=== PATIENT | female | born 1930 | race Two or more races ===

== ENCOUNTER → 2017-07-23 | Outpatient (CLI) | payer MEDICARE, MEDICAID | END | disposition home or self-care (01) | LOC: HKI 14:22 | DX: M85.851 Other specified disorders of bone density and structure, right thigh (principal); I10 Essential (primary) hypertension; E11.9 Type 2 diabetes mellitus without complications; M06.9 Rheumatoid arthritis, unspecified | CPT/HCPCS: G0463 ==

== ENCOUNTER → 2017-11-16 | Outpatient (CLI) | payer MEDICARE, MEDICAID | END | disposition home or self-care (01) | LOC: HKI 14:03 | DX: Z01.818 Encounter for other preprocedural examination (principal) | CPT/HCPCS: 73502; G0463 ==

== ENCOUNTER 2017-11-18 06:37 | Inpatient (IN) | payer MEDICARE, OTHER ==
[2017-11-18] MEDS: TRANEXAMIC ACID 1,000 MG in NS 100 ML PRE-OP X1 IVPB (07:00)
[2017-11-18] MEDS: LACTATED RINGER'S 1,000 ML IV* (07:00)
[2017-11-18] MEDS: TRANEXAMIC ACID 1,000 MG in NS 100 ML INTRA-OP X1 IVPB (07:00)
[2017-11-18] MEDS: CEFAZOLIN 2 GM/50 ML (PMX) 50 ML IVPB (07:00)
[2017-11-18] MEDS: DEXAMETHASONE 4 MG/ML 1 ML INJ IV (07:34)
[2017-11-18] MEDS: ACETAMINOPHEN 1000MG/100ML IV 100 ML IVPB (07:34)
[2017-11-18] MEDS: ONDANSETRON 4 MG INJ IV ×5 (07:34→22:30)
[2017-11-18] MEDS: LANSOPRAZOLE 30 MG CAP PO (07:41)
[2017-11-18] MEDS ORDERED: ONDANSETRON 4 MG INJ (08:27)
[2017-11-18] MEDS ORDERED: CEFAZOLIN 1 GM INJ (08:27)
[2017-11-18] MEDS ORDERED: FENTAnyl 50 MCG/ML VIAL (08:27)
[2017-11-18] MEDS ORDERED: PROPOFOL 0 ML (08:27)
[2017-11-18] MEDS ORDERED: METOCLOPRAMIDE 10 MG INJ (08:27)
[2017-11-18] MEDS ORDERED: ETOMIDATE 20 MG INJ (08:29)
[2017-11-18] MEDS ORDERED: BUPIVACAINE 0.75%/DEXT (SPINAL) 2 ML INJ (08:30)
[2017-11-18] MEDS ORDERED: ROCURONIUM 50 MG INJ (08:32)
[2017-11-18] MEDS ORDERED: EPHEDrine SULFATE 50 MG/5 ML SYG ×2 (09:43→11:02)
[2017-11-18] MEDS ORDERED: TRIMETHOBENZAMIDE 100 MG/ML VIAL IM (10:30)
[2017-11-18] MEDS ORDERED: BETHANECHOL 25 MG TAB PO (10:30)
[2017-11-18] MEDS ORDERED: NALOXONE (0.4 MG/ML) INJ IV (10:30)
[2017-11-18] MEDS ORDERED: NACL 0.9% 3 ML SYG IV (10:30)
[2017-11-18] MEDS ORDERED: DIPHENHYDRAMINE 50 MG INJ IV (10:30)
[2017-11-18] MEDS ORDERED: NA PHOSPHATE/BIPHOS 133 ML ENEMA PR (10:30)
[2017-11-18] MEDS ORDERED: BISACODYL 10 MG SUPP PR (10:30)
[2017-11-18] MEDS ORDERED: oxyCODONE 5 MG TAB PO ×2 (10:30)
[2017-11-18] MEDS ORDERED: ALBUMIN HUMAN 5% 250 ML ×2 (11:02→11:59)
[2017-11-18] MEDS: BACITRACIN 50000 UNITS INJ (11:25)
[2017-11-18] MEDS: POLYMYXIN B 500000 UNIT INJ (11:25)
[2017-11-18] MEDS ORDERED: PHENYLephrine (100 MCG/ML) 5ML SYG (11:38)
[2017-11-18] MEDS ORDERED: EPHEDrine SULFATE 50 MG/5 ML SYG IV (12:00)
[2017-11-18] MEDS ORDERED: HYDROmorphONE (0.2 MG/ML) 10ML SYG IV ×2 (12:00)
[2017-11-18] MEDS ORDERED: DEXTROSE 50% 50 ML SYRINGE IV ×3 (12:00→18:00)
[2017-11-18] MEDS ORDERED: ROPIVACAINE 0.5 % 30 ML VIAL (12:03)
[2017-11-18] MEDS: HYDROmorphONE (0.2 MG/ML) 10ML SYG IV ×2 (13:33→13:47)
[2017-11-18] MEDS: INSULIN REGULAR, HUMAN 100 UNIT/1 ML 3ML VIAL IVP (13:41)
[2017-11-18] MEDS: CEFAZOLIN 1 GM/50 ML (PMX) 50 ML IVPB ×2 (13:59→18:23)
[2017-11-18] MEDS: SOD CHLORIDE 0.9% 1,000 ML IV (14:02)
[2017-11-18] MEDS: DOCUSATE SODIUM 100 MG CAP PO (14:06)
[2017-11-18] MEDS: ASPIRIN (EC) 325 MG TAB PO (14:06)
[2017-11-18] MEDS ORDERED: GLUCOSE GEL 15 GRAM TUBE BUCCAL (18:00)
[2017-11-18] MEDS ORDERED: GLUCOSE GEL 15 GRAM TUBE PO ×2 (18:00)
[2017-11-18] MEDS ORDERED: GLUCAGON 1 MG INJ IM (18:00)
[2017-11-18] MEDS: metFORMIN 500 MG TAB PO (18:24)
[2017-11-18] MEDS: INSULIN ASPART [NOVOLOG] 3 ML PEN SC ×2 (18:24→21:20)
[2017-11-18] MEDS: ACCU-CHEK XX (19:55)
[2017-11-18] MEDS ORDERED: VITAMIN A & D 5 GM OINT PACKET TOP (21:12)
[2017-11-18] MEDS: ATORVASTATIN 40 MG TAB PO (21:18)
[2017-11-18] MEDS: GABAPENTIN 100 MG CAP PO (21:18)
[2017-11-19] MEDS: KETOROLAC 15 MG INJ IV ×2 (00:05→11:24)
[2017-11-19] MEDS: CEFAZOLIN 1 GM/50 ML (PMX) 50 ML IVPB (02:21)
[2017-11-19] MEDS: SOD CHLORIDE 0.9% 1,000 ML IV ×2 (02:24→11:14)
[2017-11-19] MEDS: ACCU-CHEK XX ×4 (02:37→20:30)
[2017-11-19 05:38] LABS: ADD MAN DIFF? NO
[2017-11-19 05:57] LABS: ANION GAP 16 (8-16); BLOOD UREA NITROGEN 27 mg/dl (7-20); CALCIUM 8.6 mg/dl (8.4-10.2); CARBON DIOXIDE 24 mmol/L (21-31); CHLORIDE 107 mmol/L (97-110); CREATININE 0.96 mg/dl (0.44-1.00); GLUCOSE 129 mg/dl (70-220); POTASSIUM 5.2 mmol/L (3.5-5.1); SODIUM 142 mmol/L (135-144)
[2017-11-19] MEDS: ONDANSETRON 4 MG INJ IV (05:58)
[2017-11-19] MEDS: PANTOPRAZOLE (EC) 40 MG TAB PO (05:58)
[2017-11-19 06:32] LABS: BASOPHILS % 0.2 % (0.0-2.0); EOSINOPHILS % 0.1 % (0.0-7.0); HEMATOCRIT 22.1 % (37.0-47.0); LYMPHOCYTES # 2.2 10^3/ul (0.8-2.9); LYMPHOCYTES % 24.5 % (15.0-51.0); MEAN CORPUSCULAR HEMOGLOBIN 28.6 pg (29.0-33.0); MEAN CORPUSCULAR HGB CONC 31.7 g/dl (32.0-37.0); MEAN CORPUSCULAR VOLUME 90.2 fl (82.0-101.0); MEAN PLATELET VOLUME 11.5 fl (7.4-10.4); MONOCYTE # 1.3 10^3/ul (0.3-0.9); MONOCYTES % 14.5 % (0.0-11.0); NEUTROPHIL # 5.3 10^3/ul (1.6-7.5); NEUTROPHILS % 60.5 % (39.0-77.0); PLATELET COUNT 159 10^3/UL (140-415); RED BLOOD COUNT 2.45 10^6/ul (4.20-5.40); RED CELL DISTRIBUTION WIDTH 13.7 % (11.5-14.5)
[2017-11-19 06:32] LABS: WHITE BLOOD COUNT 8.8 10^3/ul (4.8-10.8)
[2017-11-19 06:34] LABS: POSITIVE DIFF @See below
[2017-11-19] MEDS ORDERED: CELECOXIB 200 MG CAP PO (09:00)
[2017-11-19] MEDS ORDERED: NON-FORMULARY/PATIENT OWN MED (Omeprazole* 40 MG) PO (09:00)
[2017-11-19] MEDS: ENALAPRIL 10 MG TAB PO (09:00)
[2017-11-19] MEDS: METOPROLOL (XL) 50 MG TAB PO (09:00)
[2017-11-19] MEDS: INSULIN ASPART [NOVOLOG] 3 ML PEN SC ×4 (09:07→21:00)
[2017-11-19] MEDS: oxyCODONE 5 MG TAB PO (09:13)
[2017-11-19] MEDS: FERROUS FUMARATE (SR) TAB PO ×2 (09:14→20:28)
[2017-11-19] MEDS: CELECOXIB 100 MG CAP PO ×2 (09:14→20:29)
[2017-11-19] MEDS: DOCUSATE SODIUM 100 MG CAP PO ×2 (09:15→20:28)
[2017-11-19] MEDS: GABAPENTIN 100 MG CAP PO ×2 (09:15→20:29)
[2017-11-19] MEDS: metFORMIN 500 MG TAB PO ×2 (09:16→17:43)
[2017-11-19] MEDS: ASPIRIN (EC) 325 MG TAB PO (09:16)
[2017-11-19 15:41] LABS: IRON 26 ug/dl (35-150)
[2017-11-19 15:51] LABS: % IRON SATURATION 11 % SAT (22-52); TOTAL IRON BINDING CAPACITY 236 ug/dl (241-421)
[2017-11-19 16:17] LABS: FERRITIN 41.8 ng/ml (11.1-264.0)
[2017-11-19] MEDS: CYANOCOBALAMIN 1000 MCG INJ IM (16:51)
[2017-11-19 17:06] LABS: ADD UMIC NO; UR ASCORBIC ACID NEGATIVE (NEGATIVE); UR BILIRUBIN (Dip) NEGATIVE (NEGATIVE); UR BLOOD (Dip) NEGATIVE (NEGATIVE); UR CLARITY CLEAR (CLEAR); UR COLOR YELLOW (YELLOW); UR GLUCOSE (Dip) NEGATIVE (NEGATIVE); UR KETONES (Dip) NEGATIVE (NEGATIVE); UR LEUKOCYTE ESTERASE (Dip) NEGATIVE Leu/ul (NEGATIVE); UR NITRITE (Dip) NEGATIVE (NEGATIVE); UR SPECIFIC GRAVITY (Dip) 1.014 (1.003-1.030); UR TOTAL PROTEIN (Dip) NEGATIVE (NEGATIVE); UR UROBILINOGEN (Dip) NEGATIVE (NEGATIVE)
[2017-11-19] MEDS: SOD CHLORIDE 0.9% 500 ML IV (17:41)
[2017-11-19] MEDS ORDERED: ACETAMINOPHEN (10 MG/ML) IV SYG IV* (20:00)
[2017-11-19] MEDS: ACETAMINOPHEN 1000MG/100ML IV 50 ML IVPB ×2 (20:04→22:00)
[2017-11-19] MEDS: SOD FERRIC GLUC COMPLX 125 MG in SOD CHLORIDE 0.9% 100 ML IVPB (20:05)
[2017-11-19] MEDS: ATORVASTATIN 40 MG TAB PO (20:29)
[2017-11-19 22:18] LABS: IMMEDIATE SPIN CROSSMATCH 1 2
[2017-11-20] MEDS: ACCU-CHEK XX ×4 (02:00→20:17)
[2017-11-20] MEDS ORDERED: ACCU-CHEK XX (02:00)
[2017-11-20] MEDS: SOD CHLORIDE 0.9% 1,000 ML IV ×2 (02:31→17:47)
[2017-11-20] MEDS: ACETAMINOPHEN 1000MG/100ML IV 50 ML IVPB ×4 (02:31→17:27)
[2017-11-20] MEDS: PANTOPRAZOLE (EC) 40 MG TAB PO (05:52)
[2017-11-20] MEDS: INSULIN ASPART [NOVOLOG] 3 ML PEN SC ×4 (07:50→20:18)
[2017-11-20] MEDS: metFORMIN 500 MG TAB PO ×2 (09:00→17:47)
[2017-11-20] MEDS: ASPIRIN (EC) 325 MG TAB PO (09:29)
[2017-11-20] MEDS: GABAPENTIN 100 MG CAP PO ×2 (09:29→20:18)
[2017-11-20] MEDS: DOCUSATE SODIUM 100 MG CAP PO ×2 (09:29→20:18)
[2017-11-20] MEDS: CELECOXIB 100 MG CAP PO ×2 (09:29→20:19)
[2017-11-20] MEDS: FERROUS FUMARATE (SR) TAB PO ×2 (09:29→20:18)
[2017-11-20] MEDS: METOPROLOL (XL) 50 MG TAB PO (09:30)
[2017-11-20] MEDS: ENALAPRIL 10 MG TAB PO (09:30)
[2017-11-20 11:59] LABS: ADD MAN DIFF? NO
[2017-11-20] MEDS: TIZANIDINE 2 MG TAB PO ×2 (12:14→22:38)
[2017-11-20 12:18] LABS: BASOPHILS % 0.3 % (0.0-2.0); EOSINOPHILS # 0.1 10^3/ul (0.0-0.5); EOSINOPHILS % 1.1 % (0.0-7.0); HEMATOCRIT 29.3 % (37.0-47.0); HEMOGLOBIN 9.7 g/dl (12.0-16.0); LYMPHOCYTES # 1.6 10^3/ul (0.8-2.9); LYMPHOCYTES % 17.2 % (15.0-51.0); MEAN CORPUSCULAR HEMOGLOBIN 29.3 pg (29.0-33.0); MEAN CORPUSCULAR HGB CONC 33.1 g/dl (32.0-37.0); MEAN CORPUSCULAR VOLUME 88.5 fl (82.0-101.0); MEAN PLATELET VOLUME 11.1 fl (7.4-10.4); MONOCYTE # 1.1 10^3/ul (0.3-0.9); MONOCYTES % 11.6 % (0.0-11.0); NEUTROPHIL # 6.5 10^3/ul (1.6-7.5); NEUTROPHILS % 69.5 % (39.0-77.0); PLATELET COUNT 166 10^3/UL (140-415); RED BLOOD COUNT 3.31 10^6/ul (4.20-5.40); RED CELL DISTRIBUTION WIDTH 14.4 % (11.5-14.5)
[2017-11-20 12:18] LABS: WHITE BLOOD COUNT 9.3 10^3/ul (4.8-10.8)
[2017-11-20 12:20] LABS: ANION GAP 12 (8-16); BLOOD UREA NITROGEN 21 mg/dl (7-20); CALCIUM 8.6 mg/dl (8.4-10.2); CARBON DIOXIDE 24 mmol/L (21-31); CHLORIDE 110 mmol/L (97-110); CREATININE 0.77 mg/dl (0.44-1.00); GLUCOSE 136 mg/dl (70-220); POTASSIUM 4.6 mmol/L (3.5-5.1); SODIUM 141 mmol/L (135-144)
[2017-11-20] MEDS: SOD FERRIC GLUC COMPLX 125 MG in SOD CHLORIDE 0.9% 100 ML IVPB (17:38)
[2017-11-20] MEDS: SENNA/DOCUSATE NA (8.6MG/50MG) TAB PO (17:47)
[2017-11-20] MEDS: ATORVASTATIN 40 MG TAB PO (20:18)
[2017-11-20] MEDS: KETOROLAC 15 MG INJ IV (22:38)
[2017-11-20] MEDS: ZOLPIDEM 5 MG TAB PO (23:24)
[2017-11-21] MEDS: SOD CHLORIDE 0.9% 1,000 ML IV ×2 (00:44→06:24)
[2017-11-21] MEDS: ACCU-CHEK XX ×4 (02:00→19:55)
[2017-11-21 05:37] LABS: ADD MAN DIFF? NO
[2017-11-21 05:40] LABS: BASOPHILS % 0.4 % (0.0-2.0); EOSINOPHILS # 0.2 10^3/ul (0.0-0.5); EOSINOPHILS % 2.4 % (0.0-7.0); HEMATOCRIT 28.4 % (37.0-47.0); HEMOGLOBIN 9.4 g/dl (12.0-16.0); LYMPHOCYTES # 2.1 10^3/ul (0.8-2.9); LYMPHOCYTES % 21.7 % (15.0-51.0); MEAN CORPUSCULAR HEMOGLOBIN 29.8 pg (29.0-33.0); MEAN CORPUSCULAR HGB CONC 33.1 g/dl (32.0-37.0); MEAN CORPUSCULAR VOLUME 90.2 fl (82.0-101.0); MEAN PLATELET VOLUME 11.2 fl (7.4-10.4); MONOCYTE # 0.9 10^3/ul (0.3-0.9); MONOCYTES % 9.6 % (0.0-11.0); NEUTROPHIL # 6.2 10^3/ul (1.6-7.5); NEUTROPHILS % 65.5 % (39.0-77.0); PLATELET COUNT 171 10^3/UL (140-415); RED BLOOD COUNT 3.15 10^6/ul (4.20-5.40); RED CELL DISTRIBUTION WIDTH 14.6 % (11.5-14.5)
[2017-11-21 05:40] LABS: WHITE BLOOD COUNT 9.5 10^3/ul (4.8-10.8)
[2017-11-21] MEDS: PANTOPRAZOLE (EC) 40 MG TAB PO (06:24)
[2017-11-21] MEDS: KETOROLAC 15 MG INJ IV (06:24)
[2017-11-21] MEDS: TIZANIDINE 2 MG TAB PO ×2 (06:25→13:22)
[2017-11-21 06:30] LABS: ANION GAP 13 (8-16); BLOOD UREA NITROGEN 21 mg/dl (7-20); CALCIUM 8.5 mg/dl (8.4-10.2); CARBON DIOXIDE 22 mmol/L (21-31); CHLORIDE 111 mmol/L (97-110); CREATININE 0.78 mg/dl (0.44-1.00); GLUCOSE 121 mg/dl (70-220); POTASSIUM 4.4 mmol/L (3.5-5.1); SODIUM 142 mmol/L (135-144)
[2017-11-21] MEDS: CELECOXIB 100 MG CAP PO ×2 (08:45→21:03)
[2017-11-21] MEDS: DOCUSATE SODIUM 100 MG CAP PO ×2 (08:46→21:03)
[2017-11-21] MEDS: FERROUS FUMARATE (SR) TAB PO ×2 (08:46→21:03)
[2017-11-21] MEDS: ASPIRIN (EC) 325 MG TAB PO (08:47)
[2017-11-21] MEDS: METOPROLOL (XL) 50 MG TAB PO (08:47)
[2017-11-21] MEDS: GABAPENTIN 100 MG CAP PO ×2 (08:47→21:03)
[2017-11-21] MEDS: ENALAPRIL 10 MG TAB PO (08:48)
[2017-11-21] MEDS: INSULIN ASPART [NOVOLOG] 3 ML PEN SC ×4 (08:52→21:00)
[2017-11-21] MEDS: metFORMIN 500 MG TAB PO ×2 (08:57→17:45)
[2017-11-21] MEDS: ACETAMINOPHEN 325 MG TAB PO (12:26)
[2017-11-21] MEDS: SOD FERRIC GLUC COMPLX 125 MG in SOD CHLORIDE 0.9% 100 ML IVPB (17:22)
[2017-11-21] MEDS: ATORVASTATIN 40 MG TAB PO (21:03)
[2017-11-22] MEDS: SOD CHLORIDE 0.9% 1,000 ML IV ×2 (01:44→14:14)
[2017-11-22] MEDS: ACCU-CHEK XX ×4 (02:00→19:55)
[2017-11-22 05:28] LABS: ADD MAN DIFF? NO
[2017-11-22 05:32] LABS: BASOPHILS % 0.4 % (0.0-2.0); EOSINOPHILS # 0.3 10^3/ul (0.0-0.5); EOSINOPHILS % 2.6 % (0.0-7.0); HEMATOCRIT 29.9 % (37.0-47.0); HEMOGLOBIN 9.7 g/dl (12.0-16.0); LYMPHOCYTES # 1.7 10^3/ul (0.8-2.9); LYMPHOCYTES % 17.6 % (15.0-51.0); MEAN CORPUSCULAR HEMOGLOBIN 29.2 pg (29.0-33.0); MEAN CORPUSCULAR HGB CONC 32.4 g/dl (32.0-37.0); MEAN CORPUSCULAR VOLUME 90.1 fl (82.0-101.0); MEAN PLATELET VOLUME 10.8 fl (7.4-10.4); MONOCYTE # 1.1 10^3/ul (0.3-0.9); MONOCYTES % 11.2 % (0.0-11.0); NEUTROPHIL # 6.5 10^3/ul (1.6-7.5); NEUTROPHILS % 67.7 % (39.0-77.0); PLATELET COUNT 234 10^3/UL (140-415); RED BLOOD COUNT 3.32 10^6/ul (4.20-5.40); RED CELL DISTRIBUTION WIDTH 14.6 % (11.5-14.5)
[2017-11-22 05:32] LABS: WHITE BLOOD COUNT 9.6 10^3/ul (4.8-10.8)
[2017-11-22] MEDS: PANTOPRAZOLE (EC) 40 MG TAB PO (05:51)
[2017-11-22 06:00] LABS: ANION GAP 16 (8-16); BLOOD UREA NITROGEN 16 mg/dl (7-20); CALCIUM 8.9 mg/dl (8.4-10.2); CARBON DIOXIDE 21 mmol/L (21-31); CHLORIDE 111 mmol/L (97-110); CREATININE 0.74 mg/dl (0.44-1.00); GLUCOSE 87 mg/dl (70-220); POTASSIUM 4.6 mmol/L (3.5-5.1); SODIUM 143 mmol/L (135-144)
[2017-11-22] MEDS: METOPROLOL (XL) 50 MG TAB PO (08:40)
[2017-11-22] MEDS: FERROUS FUMARATE (SR) TAB PO ×2 (08:40→21:15)
[2017-11-22] MEDS: GABAPENTIN 100 MG CAP PO ×2 (08:41→21:15)
[2017-11-22] MEDS: ASPIRIN (EC) 325 MG TAB PO (08:41)
[2017-11-22] MEDS: metFORMIN 500 MG TAB PO ×2 (08:41→18:01)
[2017-11-22] MEDS: CELECOXIB 100 MG CAP PO ×2 (08:41→21:15)
[2017-11-22] MEDS: ENALAPRIL 10 MG TAB PO (08:41)
[2017-11-22] MEDS: INSULIN ASPART [NOVOLOG] 3 ML PEN SC ×4 (08:56→21:00)
[2017-11-22] MEDS: MAGNESIUM HYDROXIDE 30ML CUP PO (12:32)
[2017-11-22 16:27] LABS: ERYTHROCYTE SEDIMENTATION RATE 70 mm/Hr (0-30)
[2017-11-22] MEDS: ATORVASTATIN 40 MG TAB PO (21:15)
[2017-11-22] MEDS: TIZANIDINE 2 MG TAB PO (22:12)
[2017-11-23] MEDS: ACCU-CHEK XX ×3 (02:00→15:40)
[2017-11-23] MEDS: SOD CHLORIDE 0.9% 1,000 ML IV ×2 (02:44→15:14)
[2017-11-23 05:21] LABS: ADD MAN DIFF? NO
[2017-11-23 05:26] LABS: BASOPHIL # 0.1 10^3/ul (0.0-0.1); BASOPHILS % 0.7 % (0.0-2.0); EOSINOPHILS # 0.2 10^3/ul (0.0-0.5); EOSINOPHILS % 2.8 % (0.0-7.0); HEMATOCRIT 29.3 % (37.0-47.0); HEMOGLOBIN 9.7 g/dl (12.0-16.0); LYMPHOCYTES # 1.7 10^3/ul (0.8-2.9); MEAN CORPUSCULAR HEMOGLOBIN 29.8 pg (29.0-33.0); MEAN CORPUSCULAR HGB CONC 33.1 g/dl (32.0-37.0); MEAN CORPUSCULAR VOLUME 89.9 fl (82.0-101.0); MEAN PLATELET VOLUME 10.7 fl (7.4-10.4); MONOCYTES % 12.6 % (0.0-11.0); PLATELET COUNT 247 10^3/UL (140-415); RED BLOOD COUNT 3.26 10^6/ul (4.20-5.40); RED CELL DISTRIBUTION WIDTH 14.6 % (11.5-14.5)
[2017-11-23 05:26] LABS: WHITE BLOOD COUNT 8.1 10^3/ul (4.8-10.8)
[2017-11-23 05:43] LABS: ANION GAP 17 (8-16); BLOOD UREA NITROGEN 12 mg/dl (7-20); CALCIUM 9.1 mg/dl (8.4-10.2); CARBON DIOXIDE 22 mmol/L (21-31); CHLORIDE 109 mmol/L (97-110); CREATININE 0.69 mg/dl (0.44-1.00); GLUCOSE 94 mg/dl (70-220); POTASSIUM 4.4 mmol/L (3.5-5.1); SODIUM 144 mmol/L (135-144)
[2017-11-23] MEDS: PANTOPRAZOLE (EC) 40 MG TAB PO (05:48)
[2017-11-23] MEDS: INSULIN ASPART [NOVOLOG] 3 ML PEN SC ×3 (07:50→17:55)
[2017-11-23] MEDS: CELECOXIB 100 MG CAP PO (08:36)
[2017-11-23] MEDS: FERROUS FUMARATE (SR) TAB PO (08:36)
[2017-11-23] MEDS: GABAPENTIN 100 MG CAP PO (08:37)
[2017-11-23] MEDS: ASPIRIN (EC) 325 MG TAB PO (08:37)
[2017-11-23] MEDS: METOPROLOL (XL) 50 MG TAB PO (08:37)
[2017-11-23] MEDS: ENALAPRIL 10 MG TAB PO (08:45)
[2017-11-23] MEDS: metFORMIN 500 MG TAB PO ×2 (08:49→17:55)
== END 2017-11-23 20:00 | DRG 470 ==
LOC: REC 06:37 → MS1 15:06
PROVIDERS: Orthopaedic Surgery
PROC: 0SR904A Replacement of Right Hip Joint with Ceramic on Polyethylene Synthetic Substitute, Uncemented, Open Approach (ICD-10-PCS; principal; 2017-11-18 09:12)
PROC: 0QP604Z Removal of Internal Fixation Device from Right Upper Femur, Open Approach (ICD-10-PCS; 2017-11-18 09:12)
DX: T84.124A Displacement of internal fixation device of right femur, initial encounter (principal); D62 Acute posthemorrhagic anemia; M80.051A Age-related osteoporosis with current pathological fracture, right femur, initial encounter for fracture; R41.0 Disorientation, unspecified; E11.9 Type 2 diabetes mellitus without complications; I10 Essential (primary) hypertension; E53.8 Deficiency of other specified B group vitamins; K21.9 Gastro-esophageal reflux disease without esophagitis; M54.5 Low back pain
CPT/HCPCS: 36430; 72170; 73502; 73510; 80048; 81003; 82728; 82962; 83540; 85025; 85651; 86850; 86900; 86901; 86920; 87040; 87086; 88300; 88304; 88311; 93005; 97110; 97116; 97163; 97166; 97530

== ENCOUNTER 2017-11-23 20:36 | Inpatient (IN) | payer MEDICARE, OTHER ==
[2017-11-23] MEDS ORDERED: GLUCOSE GEL 15 GRAM TUBE PO ×2 (22:00)
[2017-11-23] MEDS ORDERED: GLUCAGON 1 MG INJ IM (22:00)
[2017-11-23] MEDS ORDERED: GLUCOSE GEL 15 GRAM TUBE BUCCAL (22:00)
[2017-11-23] MEDS ORDERED: BETHANECHOL 25 MG TAB PO (22:00)
[2017-11-23] MEDS ORDERED: SENNA/DOCUSATE NA (8.6MG/50MG) TAB PO (22:00)
[2017-11-23] MEDS ORDERED: DEXTROSE 50% 50 ML SYRINGE IV ×2 (22:00)
[2017-11-23] MEDS ORDERED: DIPHENHYDRAMINE 50 MG INJ IV (22:00)
[2017-11-23] MEDS ORDERED: NACL 0.9% 3 ML SYG IV (22:00)
[2017-11-23] MEDS ORDERED: NA PHOSPHATE/BIPHOS 133 ML ENEMA PR (22:00)
[2017-11-23] MEDS: Insulin NOVOLOG SS MODERATE Algorithm (SS with meals and bedtime) SC (22:00)
[2017-11-23] MEDS ORDERED: BISACODYL 10 MG SUPP PR (22:00)
[2017-11-23] MEDS ORDERED: oxyCODONE 5 MG TAB PO (22:00)
[2017-11-23] MEDS ORDERED: TRIMETHOBENZAMIDE 100 MG/ML VIAL IM (22:00)
[2017-11-23] MEDS: ATORVASTATIN 40 MG TAB PO (22:18)
[2017-11-23] MEDS: GABAPENTIN 100 MG CAP PO (22:18)
[2017-11-23] MEDS: FERROUS FUMARATE (SR) TAB PO (22:18)
[2017-11-23] MEDS: HYDROCODONE/APAP (5/325) TAB PO (22:29)
[2017-11-24] MEDS: CELECOXIB 100 MG CAP PO ×3 (00:03→21:06)
[2017-11-24] MEDS: ACCUCHECK AT 2AM (Patients on SS coverage) XX (00:04)
[2017-11-24 00:25] LABS: ADD UMIC YES; UR ASCORBIC ACID NEGATIVE (NEGATIVE); UR BACTERIA FEW /HPF (NONE SEEN); UR BILIRUBIN (Dip) NEGATIVE (NEGATIVE); UR BLOOD (Dip) 1+ mg/dL (NEGATIVE); UR CLARITY SLIGHTLY CLOUDY (CLEAR); UR COLOR YELLOW (YELLOW); UR GLUCOSE (Dip) NEGATIVE (NEGATIVE); UR KETONES (Dip) 1+ mg/dL (NEGATIVE); UR LEUKOCYTE ESTERASE (Dip) 2+ Leu/ul (NEGATIVE); UR MUCUS FEW /HPF (NONE SEEN); UR NITRITE (Dip) NEGATIVE (NEGATIVE); UR RBC 5 /HPF (0-5); UR SPECIFIC GRAVITY (Dip) 1.015 (1.003-1.030); UR TOTAL PROTEIN (Dip) NEGATIVE (NEGATIVE); UR UROBILINOGEN (Dip) 1+ mg/dL (NEGATIVE); UR WBC 84 /HPF (0-5)
[2017-11-24] MEDS: PANTOPRAZOLE (EC) 40 MG TAB PO (06:06)
[2017-11-24] MEDS: Insulin NOVOLOG SS MODERATE Algorithm (SS with meals and bedtime) SC ×4 (07:35→21:00)
[2017-11-24] MEDS: ASPIRIN (EC) 325 MG TAB PO (08:22)
[2017-11-24] MEDS: HYDROCODONE/APAP (5/325) TAB PO ×2 (08:22→14:17)
[2017-11-24] MEDS: ENALAPRIL 10 MG TAB PO (08:22)
[2017-11-24] MEDS: FERROUS FUMARATE (SR) TAB PO ×2 (08:22→21:06)
[2017-11-24] MEDS: GABAPENTIN 100 MG CAP PO ×2 (08:22→21:06)
[2017-11-24] MEDS: metFORMIN 500 MG TAB PO ×2 (08:23→17:25)
[2017-11-24] MEDS: METOPROLOL (XL) 50 MG TAB PO (08:23)
[2017-11-24 09:33] LABS: ADD MAN DIFF? NO
[2017-11-24 09:40] LABS: WHITE BLOOD COUNT 9.8 10^3/ul (4.8-10.8)
[2017-11-24 09:40] LABS: BASOPHIL # 0.1 10^3/ul (0.0-0.1); BASOPHILS % 0.6 % (0.0-2.0); EOSINOPHILS # 0.4 10^3/ul (0.0-0.5); EOSINOPHILS % 3.7 % (0.0-7.0); HEMATOCRIT 32.3 % (37.0-47.0); HEMOGLOBIN 10.4 g/dl (12.0-16.0); LYMPHOCYTES % 19.9 % (15.0-51.0); MEAN CORPUSCULAR HGB CONC 32.2 g/dl (32.0-37.0); MEAN PLATELET VOLUME 10.9 fl (7.4-10.4); MONOCYTE # 1.1 10^3/ul (0.3-0.9); MONOCYTES % 11.5 % (0.0-11.0); NEUTROPHIL # 6.2 10^3/ul (1.6-7.5); PLATELET COUNT 261 10^3/UL (140-415); RED BLOOD COUNT 3.59 10^6/ul (4.20-5.40); RED CELL DISTRIBUTION WIDTH 14.5 % (11.5-14.5)
[2017-11-24] MEDS: ACCU-CHEK XX ×2 (09:57→14:35)
[2017-11-24 10:07] LABS: ALANINE AMINOTRANSFERASE 16 IU/L (13-69); ALBUMIN 3.5 g/dl (3.3-4.9); ALBUMIN/GLOBULIN RATIO 1.09; ALKALINE PHOSPHATASE 62 IU/L (42-121); ANION GAP 17 (8-16); ASPARTATE AMINO TRANSFERASE 18 IU/L (15-46); BILIRUBIN,INDIRECT 0.3 mg/dl (0-1.1); BILIRUBIN,TOTAL 0.3 mg/dl (0.2-1.3); BLOOD UREA NITROGEN 14 mg/dl (7-20); CALCIUM 9.4 mg/dl (8.4-10.2); CARBON DIOXIDE 26 mmol/L (21-31); CHLORIDE 103 mmol/L (97-110); CREATININE 0.74 mg/dl (0.44-1.00); GLUCOSE 105 mg/dl (70-220); POTASSIUM 4.7 mmol/L (3.5-5.1); SODIUM 141 mmol/L (135-144); TOTAL PROTEIN 6.7 g/dl (6.1-8.1)
[2017-11-24] MEDS: FOSFOMYCIN 3 GM PACKET PO (17:24)
[2017-11-24] MEDS: LEVOFLOXACIN 500 MG TAB PO (17:25)
[2017-11-24] MEDS: MAGNESIUM HYDROXIDE 30ML CUP PO (17:29)
[2017-11-24] MEDS: ATORVASTATIN 40 MG TAB PO (21:06)
[2017-11-25] MEDS: ACCUCHECK AT 2AM (Patients on SS coverage) XX (02:00)
[2017-11-25] MEDS: oxyCODONE 5 MG TAB PO ×2 (03:15→15:20)
[2017-11-25] MEDS: LEVOFLOXACIN 250 MG TAB PO (06:49)
[2017-11-25] MEDS: PANTOPRAZOLE (EC) 40 MG TAB PO (06:49)
[2017-11-25] MEDS: Insulin NOVOLOG SS MODERATE Algorithm (SS with meals and bedtime) SC ×4 (07:35→21:00)
[2017-11-25] MEDS: metFORMIN 500 MG TAB PO ×2 (08:21→17:36)
[2017-11-25] MEDS: ENALAPRIL 10 MG TAB PO ×2 (09:00→15:25)
[2017-11-25] MEDS: CELECOXIB 100 MG CAP PO ×2 (09:02→21:11)
[2017-11-25] MEDS: GABAPENTIN 100 MG CAP PO ×2 (09:03→21:11)
[2017-11-25] MEDS: FERROUS FUMARATE (SR) TAB PO ×2 (09:04→21:11)
[2017-11-25] MEDS: METOPROLOL (XL) 50 MG TAB PO (09:04)
[2017-11-25] MEDS: ASPIRIN (EC) 325 MG TAB PO (09:06)
[2017-11-25] MEDS: MAGNESIUM HYDROXIDE 30ML CUP PO (09:09)
[2017-11-25] MEDS: DOCUSATE SODIUM 100 MG CAP PO ×2 (11:55→21:11)
[2017-11-25] MEDS: ATORVASTATIN 40 MG TAB PO (21:11)
[2017-11-25] MEDS: SENNA TAB PO (21:13)
[2017-11-26] MEDS: ACCUCHECK AT 2AM (Patients on SS coverage) XX (02:00)
[2017-11-26] MEDS: HYDROCODONE/APAP (5/325) TAB PO ×3 (06:26→20:27)
[2017-11-26] MEDS: PANTOPRAZOLE (EC) 40 MG TAB PO (06:26)
[2017-11-26] MEDS: LEVOFLOXACIN 250 MG TAB PO (06:26)
[2017-11-26 06:46] LABS: ADD MAN DIFF? NO
[2017-11-26 06:48] LABS: WHITE BLOOD COUNT 8.8 10^3/ul (4.8-10.8)
[2017-11-26 06:48] LABS: BASOPHIL # 0.1 10^3/ul (0.0-0.1); BASOPHILS % 0.6 % (0.0-2.0); EOSINOPHILS # 0.4 10^3/ul (0.0-0.5); EOSINOPHILS % 4.1 % (0.0-7.0); HEMATOCRIT 33.9 % (37.0-47.0); LYMPHOCYTES # 1.9 10^3/ul (0.8-2.9); LYMPHOCYTES % 21.6 % (15.0-51.0); MEAN CORPUSCULAR HEMOGLOBIN 29.2 pg (29.0-33.0); MEAN CORPUSCULAR HGB CONC 32.4 g/dl (32.0-37.0); MEAN CORPUSCULAR VOLUME 89.9 fl (82.0-101.0); MEAN PLATELET VOLUME 10.4 fl (7.4-10.4); NEUTROPHIL # 5.4 10^3/ul (1.6-7.5); NEUTROPHILS % 60.7 % (39.0-77.0); PLATELET COUNT 305 10^3/UL (140-415); RED BLOOD COUNT 3.77 10^6/ul (4.20-5.40); RED CELL DISTRIBUTION WIDTH 14.5 % (11.5-14.5)
[2017-11-26] MEDS: Insulin NOVOLOG SS MODERATE Algorithm (SS with meals and bedtime) SC ×4 (07:35→20:28)
[2017-11-26] MEDS: GABAPENTIN 100 MG CAP PO ×2 (08:51→20:26)
[2017-11-26] MEDS: ENALAPRIL 10 MG TAB PO (08:51)
[2017-11-26] MEDS: FERROUS FUMARATE (SR) TAB PO ×2 (08:51→20:26)
[2017-11-26] MEDS: metFORMIN 500 MG TAB PO ×2 (08:52→17:50)
[2017-11-26] MEDS: CELECOXIB 100 MG CAP PO ×2 (08:52→20:26)
[2017-11-26] MEDS: DOCUSATE SODIUM 100 MG CAP PO ×2 (08:52→20:26)
[2017-11-26] MEDS: METOPROLOL (XL) 50 MG TAB PO (08:52)
[2017-11-26] MEDS: ASPIRIN (EC) 325 MG TAB PO (08:52)
[2017-11-26] MEDS: ATORVASTATIN 40 MG TAB PO (20:26)
[2017-11-26] MEDS: SENNA TAB PO (20:27)
[2017-11-27] MEDS: ACCUCHECK AT 2AM (Patients on SS coverage) XX (02:00)
[2017-11-27] MEDS: PANTOPRAZOLE (EC) 40 MG TAB PO (06:44)
[2017-11-27] MEDS: LEVOFLOXACIN 250 MG TAB PO (06:44)
[2017-11-27] MEDS: Insulin NOVOLOG SS MODERATE Algorithm (SS with meals and bedtime) SC ×4 (07:35→20:18)
[2017-11-27] MEDS: metFORMIN 500 MG TAB PO ×2 (08:54→17:35)
[2017-11-27] MEDS: HYDROCODONE/APAP (5/325) TAB PO (08:55)
[2017-11-27] MEDS: SENNA TAB PO (08:57)
[2017-11-27] MEDS: GABAPENTIN 100 MG CAP PO ×2 (08:57→20:20)
[2017-11-27] MEDS: DOCUSATE SODIUM 100 MG CAP PO ×2 (08:57→20:20)
[2017-11-27] MEDS: FERROUS FUMARATE (SR) TAB PO ×2 (08:57→20:20)
[2017-11-27] MEDS: ENALAPRIL 10 MG TAB PO (08:58)
[2017-11-27] MEDS: CELECOXIB 100 MG CAP PO ×2 (08:58→20:20)
[2017-11-27] MEDS: ASPIRIN (EC) 325 MG TAB PO (08:59)
[2017-11-27] MEDS: METOPROLOL (XL) 50 MG TAB PO (09:05)
[2017-11-27] MEDS: ATORVASTATIN 40 MG TAB PO (20:20)
[2017-11-28] MEDS: ACCUCHECK AT 2AM (Patients on SS coverage) XX (02:00)
[2017-11-28] MEDS: LEVOFLOXACIN 250 MG TAB PO (06:35)
[2017-11-28] MEDS: PANTOPRAZOLE (EC) 40 MG TAB PO (06:35)
[2017-11-28] MEDS: Insulin NOVOLOG SS MODERATE Algorithm (SS with meals and bedtime) SC ×4 (07:35→20:50)
[2017-11-28] MEDS: DOCUSATE SODIUM 100 MG CAP PO ×4 (09:00→21:00)
[2017-11-28] MEDS: SENNA TAB PO ×2 (09:00→09:16)
[2017-11-28] MEDS: ASPIRIN (EC) 325 MG TAB PO (09:16)
[2017-11-28] MEDS: metFORMIN 500 MG TAB PO ×2 (09:16→17:58)
[2017-11-28] MEDS: GABAPENTIN 100 MG CAP PO ×2 (09:16→20:48)
[2017-11-28] MEDS: FERROUS FUMARATE (SR) TAB PO ×3 (09:16→20:50)
[2017-11-28] MEDS: CELECOXIB 100 MG CAP PO ×2 (09:16→20:48)
[2017-11-28] MEDS: ENALAPRIL 10 MG TAB PO (09:41)
[2017-11-28] MEDS: METOPROLOL (XL) 50 MG TAB PO (09:42)
[2017-11-28] MEDS: ATORVASTATIN 40 MG TAB PO (20:48)
[2017-11-28] MEDS: TEMAZEPAM 7.5 MG CAP PO (21:32)
[2017-11-29] MEDS: ACCUCHECK AT 2AM (Patients on SS coverage) XX (02:00)
[2017-11-29] MEDS: PANTOPRAZOLE (EC) 40 MG TAB PO (06:00)
[2017-11-29] MEDS: Insulin NOVOLOG SS MODERATE Algorithm (SS with meals and bedtime) SC ×4 (07:35→21:00)
[2017-11-29] MEDS: FERROUS FUMARATE (SR) TAB PO ×2 (08:22→21:05)
[2017-11-29] MEDS: CELECOXIB 100 MG CAP PO ×2 (08:22→21:05)
[2017-11-29] MEDS: ENALAPRIL 10 MG TAB PO (08:22)
[2017-11-29] MEDS: GABAPENTIN 100 MG CAP PO ×2 (08:22→21:05)
[2017-11-29] MEDS: SENNA TAB PO (08:22)
[2017-11-29] MEDS: ASPIRIN (EC) 325 MG TAB PO (08:23)
[2017-11-29] MEDS: METOPROLOL (XL) 50 MG TAB PO (08:23)
[2017-11-29] MEDS: metFORMIN 500 MG TAB PO ×2 (08:23→17:40)
[2017-11-29] MEDS: DOCUSATE SODIUM 100 MG CAP PO ×2 (08:23→21:00)
[2017-11-29] MEDS: HYDROCODONE/APAP (5/325) TAB PO ×3 (08:24→17:41)
[2017-11-29] MEDS: ATORVASTATIN 40 MG TAB PO (21:05)
[2017-11-29] MEDS: TEMAZEPAM 7.5 MG CAP PO (21:12)
[2017-11-30] MEDS: ACCUCHECK AT 2AM (Patients on SS coverage) XX (02:00)
[2017-11-30] MEDS: PANTOPRAZOLE (EC) 40 MG TAB PO (06:22)
[2017-11-30] MEDS: Insulin NOVOLOG SS MODERATE Algorithm (SS with meals and bedtime) SC ×4 (07:35→21:00)
[2017-11-30] MEDS: metFORMIN 500 MG TAB PO ×2 (08:00→18:06)
[2017-11-30] MEDS: CELECOXIB 100 MG CAP PO ×2 (09:00→21:26)
[2017-11-30] MEDS: GABAPENTIN 100 MG CAP PO ×2 (09:00→21:26)
[2017-11-30] MEDS: DOCUSATE SODIUM 100 MG CAP PO ×2 (09:00→21:26)
[2017-11-30] MEDS: SENNA TAB PO (09:00)
[2017-11-30] MEDS: FERROUS FUMARATE (SR) TAB PO ×2 (09:00→21:26)
[2017-11-30] MEDS: ASPIRIN (EC) 325 MG TAB PO (09:00)
[2017-11-30] MEDS: ENALAPRIL 10 MG TAB PO (09:01)
[2017-11-30] MEDS: METOPROLOL (XL) 50 MG TAB PO (09:01)
[2017-11-30] MEDS: TEMAZEPAM 7.5 MG CAP PO (21:26)
[2017-11-30] MEDS: ATORVASTATIN 40 MG TAB PO (21:26)
[2017-12-01] MEDS: ACCUCHECK AT 2AM (Patients on SS coverage) XX (02:00)
[2017-12-01] MEDS: PANTOPRAZOLE (EC) 40 MG TAB PO (06:01)
[2017-12-01] MEDS: Insulin NOVOLOG SS MODERATE Algorithm (SS with meals and bedtime) SC ×4 (07:35→21:00)
[2017-12-01] MEDS: ASPIRIN (EC) 325 MG TAB PO (08:19)
[2017-12-01] MEDS: CELECOXIB 100 MG CAP PO ×2 (08:19→21:24)
[2017-12-01] MEDS: metFORMIN 500 MG TAB PO ×2 (08:19→17:58)
[2017-12-01] MEDS: METOPROLOL (XL) 50 MG TAB PO (08:19)
[2017-12-01] MEDS: DOCUSATE SODIUM 100 MG CAP PO ×2 (08:20→21:24)
[2017-12-01] MEDS: GABAPENTIN 100 MG CAP PO ×2 (08:20→21:24)
[2017-12-01] MEDS: ENALAPRIL 10 MG TAB PO (08:20)
[2017-12-01] MEDS: SENNA TAB PO (08:20)
[2017-12-01] MEDS: FERROUS FUMARATE (SR) TAB PO ×2 (08:20→21:24)
[2017-12-01] MEDS: HYDROCODONE/APAP (5/325) TAB PO ×2 (08:31→16:51)
[2017-12-01] MEDS: ATORVASTATIN 40 MG TAB PO (21:24)
[2017-12-01] MEDS: TEMAZEPAM 7.5 MG CAP PO (21:30)
[2017-12-02] MEDS: ACCUCHECK AT 2AM (Patients on SS coverage) XX (02:00)
[2017-12-02] MEDS: PANTOPRAZOLE (EC) 40 MG TAB PO (06:30)
[2017-12-02] MEDS: Insulin NOVOLOG SS MODERATE Algorithm (SS with meals and bedtime) SC ×4 (07:35→21:00)
[2017-12-02] MEDS: HYDROCODONE/APAP (5/325) TAB PO (07:56)
[2017-12-02] MEDS: DOCUSATE SODIUM 100 MG CAP PO ×2 (08:15→21:45)
[2017-12-02] MEDS: FERROUS FUMARATE (SR) TAB PO ×2 (08:15→21:45)
[2017-12-02] MEDS: CELECOXIB 100 MG CAP PO ×2 (08:16→21:46)
[2017-12-02] MEDS: ASPIRIN (EC) 325 MG TAB PO (08:16)
[2017-12-02] MEDS: ENALAPRIL 10 MG TAB PO (08:16)
[2017-12-02] MEDS: GABAPENTIN 100 MG CAP PO ×2 (08:16→21:45)
[2017-12-02] MEDS: metFORMIN 500 MG TAB PO ×2 (08:16→18:08)
[2017-12-02] MEDS: SENNA TAB PO (08:16)
[2017-12-02] MEDS: METOPROLOL (XL) 50 MG TAB PO (08:17)
[2017-12-02] MEDS: ATORVASTATIN 40 MG TAB PO (21:45)
[2017-12-02] MEDS: TEMAZEPAM 7.5 MG CAP PO (21:45)
[2017-12-03] MEDS: ACCUCHECK AT 2AM (Patients on SS coverage) XX (02:00)
[2017-12-03] MEDS: PANTOPRAZOLE (EC) 40 MG TAB PO (06:30)
[2017-12-03] MEDS: Insulin NOVOLOG SS MODERATE Algorithm (SS with meals and bedtime) SC ×4 (07:35→21:00)
[2017-12-03] MEDS: SENNA TAB PO (08:27)
[2017-12-03] MEDS: metFORMIN 500 MG TAB PO ×2 (08:27→17:58)
[2017-12-03] MEDS: METOPROLOL (XL) 50 MG TAB PO (08:28)
[2017-12-03] MEDS: CELECOXIB 100 MG CAP PO ×2 (08:28→22:03)
[2017-12-03] MEDS: ENALAPRIL 10 MG TAB PO (08:28)
[2017-12-03] MEDS: HYDROCODONE/APAP (5/325) TAB PO ×4 (08:28→22:03)
[2017-12-03] MEDS: DOCUSATE SODIUM 100 MG CAP PO ×2 (08:28→22:04)
[2017-12-03] MEDS: ASPIRIN (EC) 325 MG TAB PO (08:28)
[2017-12-03] MEDS: GABAPENTIN 100 MG CAP PO ×2 (08:28→22:04)
[2017-12-03] MEDS: FERROUS FUMARATE (SR) TAB PO ×2 (08:28→22:03)
[2017-12-03] MEDS: LACTULOSE 30ML CUP PO (17:57)
[2017-12-03] MEDS: ATORVASTATIN 40 MG TAB PO (22:03)
[2017-12-04] MEDS: ACCUCHECK AT 2AM (Patients on SS coverage) XX (01:32)
[2017-12-04] MEDS: PANTOPRAZOLE (EC) 40 MG TAB PO (06:43)
[2017-12-04] MEDS: Insulin NOVOLOG SS MODERATE Algorithm (SS with meals and bedtime) SC ×4 (07:35→20:12)
[2017-12-04] MEDS: METOPROLOL (XL) 50 MG TAB PO (08:08)
[2017-12-04] MEDS: FERROUS FUMARATE (SR) TAB PO ×2 (08:09→20:06)
[2017-12-04] MEDS: ENALAPRIL 10 MG TAB PO (08:09)
[2017-12-04] MEDS: SENNA TAB PO (08:09)
[2017-12-04] MEDS: HYDROCODONE/APAP (5/325) TAB PO (08:09)
[2017-12-04] MEDS: GABAPENTIN 100 MG CAP PO ×2 (08:10→20:06)
[2017-12-04] MEDS: DOCUSATE SODIUM 100 MG CAP PO ×2 (08:10→20:07)
[2017-12-04] MEDS: CELECOXIB 100 MG CAP PO ×2 (08:10→20:07)
[2017-12-04] MEDS: ASPIRIN (EC) 325 MG TAB PO (08:10)
[2017-12-04] MEDS: metFORMIN 500 MG TAB PO ×2 (08:10→17:15)
[2017-12-04] MEDS: ATORVASTATIN 40 MG TAB PO (20:06)
[2017-12-05] MEDS: ACCUCHECK AT 2AM (Patients on SS coverage) XX (02:00)
[2017-12-05] MEDS: PANTOPRAZOLE (EC) 40 MG TAB PO (06:00)
[2017-12-05] MEDS: Insulin NOVOLOG SS MODERATE Algorithm (SS with meals and bedtime) SC ×4 (07:35→20:16)
[2017-12-05] MEDS: ENALAPRIL 10 MG TAB PO (08:23)
[2017-12-05] MEDS: DOCUSATE SODIUM 100 MG CAP PO ×2 (08:23→20:12)
[2017-12-05] MEDS: CELECOXIB 100 MG CAP PO ×2 (08:23→20:12)
[2017-12-05] MEDS: GABAPENTIN 100 MG CAP PO ×2 (08:23→20:12)
[2017-12-05] MEDS: FERROUS FUMARATE (SR) TAB PO ×2 (08:23→20:12)
[2017-12-05] MEDS: SENNA TAB PO (08:24)
[2017-12-05] MEDS: HYDROCODONE/APAP (5/325) TAB PO ×2 (08:24→12:36)
[2017-12-05] MEDS: METOPROLOL (XL) 50 MG TAB PO (08:24)
[2017-12-05] MEDS: ASPIRIN (EC) 325 MG TAB PO (08:24)
[2017-12-05] MEDS: metFORMIN 500 MG TAB PO ×2 (08:24→17:34)
[2017-12-05] MEDS: ATORVASTATIN 40 MG TAB PO (20:12)
[2017-12-06] MEDS: ACCUCHECK AT 2AM (Patients on SS coverage) XX (02:00)
[2017-12-06] MEDS: PANTOPRAZOLE (EC) 40 MG TAB PO (06:31)
[2017-12-06] MEDS: Insulin NOVOLOG SS MODERATE Algorithm (SS with meals and bedtime) SC ×2 (07:35→12:00)
[2017-12-06] MEDS: FERROUS FUMARATE (SR) TAB PO (08:10)
[2017-12-06] MEDS: HYDROCODONE/APAP (5/325) TAB PO (08:11)
[2017-12-06] MEDS: GABAPENTIN 100 MG CAP PO (08:11)
[2017-12-06] MEDS: ASPIRIN (EC) 325 MG TAB PO (08:13)
[2017-12-06] MEDS: DOCUSATE SODIUM 100 MG CAP PO (08:13)
[2017-12-06] MEDS: METOPROLOL (XL) 50 MG TAB PO (08:14)
[2017-12-06] MEDS: SENNA TAB PO (08:14)
[2017-12-06] MEDS: ENALAPRIL 10 MG TAB PO (08:14)
[2017-12-06] MEDS: metFORMIN 500 MG TAB PO (08:15)
[2017-12-06] MEDS: CELECOXIB 100 MG CAP PO (08:18)
== END 2017-12-06 12:45 | disposition home health service (06) | DRG 560 ==
LOC: VRC 20:36
PROC: F07Z5ZZ Bed Mobility Treatment (ICD-10-PCS; principal; 2017-11-23)
PROC: F08Z2ZZ Grooming/Personal Hygiene Treatment (ICD-10-PCS; 2017-11-23)
PROC: F06Z6ZZ Communicative/Cognitive Integration Skills Treatment (ICD-10-PCS; 2017-11-23)
DX: S72.001D Fracture of unspecified part of neck of right femur, subsequent encounter for closed fracture with routine healing (principal); M97.01XA Periprosthetic fracture around internal prosthetic right hip joint, initial encounter; N39.0 Urinary tract infection, site not specified; D62 Acute posthemorrhagic anemia; G89.18 Other acute postprocedural pain; E78.5 Hyperlipidemia, unspecified; E11.9 Type 2 diabetes mellitus without complications; E53.8 Deficiency of other specified B group vitamins; M19.012 Primary osteoarthritis, left shoulder; M19.011 Primary osteoarthritis, right shoulder; E78.00 Pure hypercholesterolemia, unspecified; E66.9 Obesity, unspecified; Z68.31 Body mass index [BMI] 31.0-31.9, adult; K21.9 Gastro-esophageal reflux disease without esophagitis; I10 Essential (primary) hypertension; F06.31 Mood disorder due to known physiological condition with depressive features; F06.8 Other specified mental disorders due to known physiological condition; X58.XXXD Exposure to other specified factors, subsequent encounter
CPT/HCPCS: 80053; 81001; 82962; 85025; 87081; 87086; 93005; 97110; 97112; 97116; 97150; 97163; 97167; 97530; 97535

== ENCOUNTER → 2017-12-13 | Outpatient (CLI) | payer MEDICARE, OTHER | END | disposition home or self-care (01) | LOC: HKI 11:10 | DX: Z47.1 Aftercare following joint replacement surgery (principal); Z96.641 Presence of right artificial hip joint | CPT/HCPCS: 73502; 73552 ==